=== PATIENT | male | born 1975 | race Two or more races ===

== ENCOUNTER 2021-09-03 03:31 | Emergency (ER) | payer MEDICAID ==
[~2021-09-03] VITALS: Ht 165.1 cm; Wt 90.7 kg
[2021-09-03] MEDS ORDERED: IBUP600T27 PO (11:45)
[2021-09-03] MEDS ORDERED: CYCL-837 PO (11:45)
[2021-09-03 12:36] LABS: Urine Bacteria NONE SEEN /hpf (None Seen); Urine Blood 2+ /uL (Negative); Urine Specific Gravity 1.016 (1.001-1.035); Urine WBC 54 /hpf (0 - 3)
[2021-09-03] MEDS ORDERED: cefTRIAXone 1GM/50ML D5W 50 ML IV ONE (14:30)
[2021-09-03] MEDS ORDERED: cefTRIAXone SOD 500 MG VL IM ONE (15:30)
[2021-09-03] MEDS ORDERED: GABAPENTIN 300 MG CAP PO ONE ×2 (18:00→21:45)
[2021-09-03] MEDS ORDERED: BACLOFEN 10 MG TAB PO ONE ×2 (18:00→21:45)
[2021-09-03] MEDS ORDERED: ALPRAZolam 0.5 MG TAB PO ONE (22:00)
[2021-09-04 15:10] VITALS: BP 151/79
== END 2021-09-04 15:17 | disposition home or self-care (01) ==
LOC: EDBD 03:31 → ER 03:31
DX: M54.9 Dorsalgia, unspecified (principal); M54.2 Cervicalgia; G82.50 Quadriplegia, unspecified; Z79.1 Long term (current) use of non-steroidal anti-inflammatories (NSAID); Z79.899 Other long term (current) drug therapy; V59.59XA Passenger in pick-up truck or van injured in collision with other motor vehicles in traffic accident, initial encounter; Y93.89 Activity, other specified; Y92.89 Other specified places as the place of occurrence of the external cause; Y99.8 Other external cause status
CPT/HCPCS: 72125; 72131; 81001; 96372; 99285; J0696

== ENCOUNTER 2022-08-16 19:38 | Inpatient (IN) | payer MEDICAID ==
[~2022-08-16] VITALS: Ht 175.3 cm; Wt 103.0 kg
[~2022-08-16 19:38] MED LIST: CYCL-837 PO; IBUP600T27 PO
[2022-08-16] MEDS ORDERED: AZITHROMYCIN 500MG/ 250ML 250 ML IV ONE (19:45)
[2022-08-16] MEDS ORDERED: cefTRIAXone 1GM/50ML D5W 50 ML IV ONE (19:45)
[2022-08-16] MEDS ORDERED: SODIUM CHLORIDE 0.9% 1,000 ML IV ONE ×2 (19:45)
[2022-08-16 21:58] LABS: Basophils # (auto) 0 10 ^3/uL (0-0.2); Basophils % (auto) 0.7 % (0.0-2.0); Eosinophils # (auto) 0.2 10 ^3/uL (0-0.8); Eosinophils % (auto) 4.4 % (0.0-7.0); Hematocrit 36.1 % (41.0-53.0); Hemoglobin 11.9 g/dL (13.5-17.5); Lymphocytes # (auto) 0.7 10 ^3/uL (0.4-5.4); Lymphocytes % (auto) 18.1 % (10.0-50.0); Mean Corpuscular Hgb Conc. 32.9 g/dL (32.0-36.0); Mean Corpuscular Volume 97.3 fL (80.0-100.0); Monocytes # (auto) 0.4 10 ^3/uL (0-1.3); Monocytes % (auto) 10.5 % (0.0-12.0); Neutrophils # (auto) 2.7 10 ^3/uL (1.6-8.6); Neutrophils % (auto) 66.3 % (37.0-80.0); Nucleated Red Blood Cells % 0.3 %; Red Blood Cells 3.72 10^6/uL (4.5-5.90); Red Cell Distribution Width 14.5 % (11.8-14.3)
[2022-08-16 22:13] LABS: INR 1.01 (0.9-1.15); Partial Thromboplastin Time 29.3 sec (24.6-33.4)
[2022-08-16 22:27] LABS: Albumin 3.1 g/dL (3.4-5.0); Calcium 7.8 mg/dL (8.5-10.1); Potassium 4.5 mmol/L (3.5-5.1)
[2022-08-16 22:32] LABS: BUN/Creatinine Ratio 18.7 (10.0-20.0); Bilirubin, Total 0.3 mg/dL (0.2-1.0); Total Protein 7.1 g/dL (6.4-8.2)
[2022-08-17 01:02] LABS: Urine Amorphous Crystal FEW /hpf (None Seen); Urine Bacteria MANY /hpf (None Seen); Urine Blood 1+ /uL (Negative); Urine Hyaline Cast MOD /lpf (0 - 2); Urine Mucus FEW (None Seen); Urine Specific Gravity 1.009 (1.001-1.035); Urine WBC 82 /hpf (0 - 3)
[2022-08-17] MEDS: SODIUM CHLORIDE 0.9% 1,000 ML IV SCH ×2 (03:15→20:14)
[2022-08-17] MEDS ORDERED: ONDANSETRON HCL 4 MG/2 ML VIAL IV PRN (03:15)
[2022-08-17] MEDS ORDERED: DOCUSATE SOD 100 MG CAP PO PRN (03:15)
[2022-08-17] MEDS ORDERED: ACETAMINOPHEN 325 MG TAB PO PRN ×2 (03:15→16:45)
[2022-08-17] MEDS ORDERED: ALBUMIN 25% 100 ML IV ONE (03:15)
[2022-08-17] MEDS ORDERED: ALPR2TAB2 PO (04:07)
[2022-08-17] MEDS ORDERED: DANT50CA PO (04:23)
[2022-08-17] MEDS ORDERED: HYDR-4902 PO (04:23)
[2022-08-17] MEDS ORDERED: GABA-339 PO (04:23)
[2022-08-17] MEDS ORDERED: OME20T PO (04:23)
[2022-08-17] MEDS ORDERED: BACL10TA PO (04:23)
[2022-08-17] MEDS: HYDROcodone-ACET 5/325MG TAB PO PRN ×4 (04:29→23:24)
[2022-08-17] MEDS ORDERED: MORPHINE SULFATE INJ 2 MG/ml SYRG IV PRN (04:30)
[2022-08-17] MEDS ORDERED: NITROGLYCERIN 0.4 MG SL TAB SL PRN (04:30)
[2022-08-17 06:16] LABS: Basophils # (auto) 0 10 ^3/uL (0-0.2); Basophils % (auto) 0.8 % (0.0-2.0); Eosinophils # (auto) 0.2 10 ^3/uL (0-0.8); Eosinophils % (auto) 4.9 % (0.0-7.0); Hematocrit 31.3 % (41.0-53.0); Hemoglobin 10.8 g/dL (13.5-17.5); Lymphocytes # (auto) 0.7 10 ^3/uL (0.4-5.4); Lymphocytes % (auto) 19.7 % (10.0-50.0); Mean Corpuscular Hemoglobin 33.3 pg (28.0-32.0); Mean Corpuscular Hgb Conc. 34.4 g/dL (32.0-36.0); Monocytes # (auto) 0.5 10 ^3/uL (0-1.3); Monocytes % (auto) 14.8 % (0.0-12.0); Neutrophils # (auto) 2.2 10 ^3/uL (1.6-8.6); Neutrophils % (auto) 59.8 % (37.0-80.0); Red Blood Cells 3.23 10^6/uL (4.5-5.90); Red Cell Distribution Width 14.5 % (11.8-14.3); White Blood Cell 3.6 10^3/uL (4.4-10.8)
[2022-08-17 06:42] LABS: Potassium 4.7 mmol/L (3.5-5.1)
[2022-08-17 07:13] LABS: Albumin 3.2 g/dL (3.4-5.0); BUN/Creatinine Ratio 22.9 (10.0-20.0); Bilirubin, Total 0.2 mg/dL (0.2-1.0); Calcium 7.8 mg/dL (8.5-10.1); Total Protein 6.5 g/dL (6.4-8.2)
[2022-08-17] MEDS: ENOXAPARIN SOD 40 MG/0.4 ML SYRINGE SC SCH (11:26)
[2022-08-17] MEDS: FAMOTIDINE (10MG/ML) 2ML VL IV SCH (11:26)
[2022-08-17] MEDS ORDERED: IBUPROFEN 600 MG TAB PO PRN (16:45)
[2022-08-17] MEDS: GABAPENTIN 300 MG CAP PO SCH ×2 (17:44→22:04)
[2022-08-17] MEDS: BACLOFEN 10 MG TAB PO SCH ×2 (17:44→22:04)
[2022-08-17] MEDS: DANTROLENE SODIUM 50 MG PO SCH ×2 (18:40→22:12)
[2022-08-17] MEDS: cefTRIAXone 1GM/50ML D5W 50 ML IV SCH (21:05)
[2022-08-17] MEDS: AZITHROMYCIN 500MG/ 250ML 250 ML IV SCH (22:03)
[2022-08-18] VITALS (8 sets, daily range): BP systolic 113–164; BP diastolic 54–101
[2022-08-18] MEDS: ALPRAZolam 0.5 MG TAB PO SCH ×3 (01:18→22:04)
[2022-08-18] MEDS ORDERED: SENN-83 PO (02:33)
[2022-08-18] MEDS ORDERED: BACL10TA PO (02:56)
[2022-08-18] MEDS ORDERED: SULF400T11 PO (03:00)
[2022-08-18] MEDS: GABAPENTIN 300 MG CAP PO SCH ×4 (05:24→22:04)
[2022-08-18] MEDS: BACLOFEN 10 MG TAB PO SCH ×4 (05:24→22:05)
[2022-08-18] MEDS: DANTROLENE SODIUM 50 MG PO SCH (05:25)
[2022-08-18] MEDS: HYDROcodone-ACET 5/325MG TAB PO PRN ×3 (05:25→20:38)
[2022-08-18 07:19] LABS: Basophils # (auto) 0.1 10 ^3/uL (0-0.2); Eosinophils # (auto) 0.2 10 ^3/uL (0-0.8); Eosinophils % (auto) 5.3 % (0.0-7.0); Hematocrit 34.4 % (41.0-53.0); Hemoglobin 11.6 g/dL (13.5-17.5); Lymphocytes # (auto) 0.8 10 ^3/uL (0.4-5.4); Lymphocytes % (auto) 18.4 % (10.0-50.0); Mean Corpuscular Hemoglobin 32.2 pg (28.0-32.0); Mean Corpuscular Hgb Conc. 33.7 g/dL (32.0-36.0); Mean Corpuscular Volume 95.6 fL (80.0-100.0); Monocytes # (auto) 0.6 10 ^3/uL (0-1.3); Monocytes % (auto) 12.4 % (0.0-12.0); Neutrophils # (auto) 2.8 10 ^3/uL (1.6-8.6); Neutrophils % (auto) 61.9 % (37.0-80.0); Nucleated Red Blood Cells % 0.1 %; Red Cell Distribution Width 14.5 % (11.8-14.3); White Blood Cell 4.5 10^3/uL (4.4-10.8)
[2022-08-18 07:44] LABS: Albumin 3.1 g/dL (3.4-5.0); Calcium 8.4 mg/dL (8.5-10.1); Potassium 4.1 mmol/L (3.5-5.1)
[2022-08-18 07:47] LABS: BUN/Creatinine Ratio 15.2 (10.0-20.0); Bilirubin, Total 0.2 mg/dL (0.2-1.0); Total Protein 7.1 g/dL (6.4-8.2)
[2022-08-18] MEDS: ENOXAPARIN SOD 40 MG/0.4 ML SYRINGE SC SCH (09:52)
[2022-08-18] MEDS: FAMOTIDINE (10MG/ML) 2ML VL IV SCH (09:53)
[2022-08-18] MEDS: SODIUM CHLORIDE 0.9% 1,000 ML IV SCH ×2 (12:35→17:56)
[2022-08-18] MEDS: DANTROLENE 50 MG PO SCH ×3 (13:50→22:05)
[2022-08-18] MEDS ORDERED: hydrALAZINE HCL 20 MG/ML VL IV PRN (16:30)
[2022-08-18] MEDS: LOSARTAN POTASSIUM 25 MG TAB PO ONE ×2 (17:30→17:32)
[2022-08-18] MEDS: cefTRIAXone 1GM/50ML D5W 50 ML IV SCH (20:39)
[2022-08-18] MEDS: AZITHROMYCIN 500MG/ 250ML 250 ML IV SCH (22:04)
[2022-08-19] MEDS: HYDROcodone-ACET 5/325MG TAB PO PRN ×4 (01:22→18:11)
[2022-08-19 05:00] VITALS: BP 150/85
[2022-08-19] MEDS: BACLOFEN 10 MG TAB PO SCH ×3 (06:16→18:11)
[2022-08-19] MEDS: DANTROLENE 50 MG PO SCH ×3 (06:16→18:12)
[2022-08-19] MEDS: GABAPENTIN 300 MG CAP PO SCH ×3 (06:16→18:11)
[2022-08-19 06:56] LABS: Basophils # (auto) 0.1 10 ^3/uL (0-0.2); Basophils % (auto) 1.5 % (0.0-2.0); Eosinophils # (auto) 0.2 10 ^3/uL (0-0.8); Eosinophils % (auto) 5.2 % (0.0-7.0); Hematocrit 33.8 % (41.0-53.0); Hemoglobin 11.7 g/dL (13.5-17.5); Lymphocytes # (auto) 1.6 10 ^3/uL (0.4-5.4); Lymphocytes % (auto) 36.9 % (10.0-50.0); Mean Corpuscular Hemoglobin 32.6 pg (28.0-32.0); Mean Corpuscular Hgb Conc. 34.6 g/dL (32.0-36.0); Mean Corpuscular Volume 94.2 fL (80.0-100.0); Monocytes # (auto) 0.6 10 ^3/uL (0-1.3); Monocytes % (auto) 14.4 % (0.0-12.0); Neutrophils # (auto) 1.8 10 ^3/uL (1.6-8.6); Nucleated Red Blood Cells % 0.6 %; Red Blood Cells 3.59 10^6/uL (4.5-5.90); Red Cell Distribution Width 14.5 % (11.8-14.3); White Blood Cell 4.2 10^3/uL (4.4-10.8)
[2022-08-19 07:26] LABS: Potassium 4.2 mmol/L (3.5-5.1)
[2022-08-19 07:33] LABS: Albumin 3.3 g/dL (3.4-5.0); BUN/Creatinine Ratio 19.6 (10.0-20.0); Bilirubin, Total 0.3 mg/dL (0.2-1.0); Total Protein 7.2 g/dL (6.4-8.2)
[2022-08-19 09:27] VITALS: BP 166/90
[2022-08-19] MEDS: ENOXAPARIN SOD 40 MG/0.4 ML SYRINGE SC SCH (09:40)
[2022-08-19] MEDS: FAMOTIDINE (10MG/ML) 2ML VL IV SCH (09:41)
[2022-08-19] MEDS: ALPRAZolam 0.5 MG TAB PO SCH (09:41)
[2022-08-19] MEDS ORDERED: LOSARTAN POTASSIUM 25 MG TAB PO SCH (10:00)
[2022-08-19] MEDS ORDERED: LINE1TAB6 PO (11:47)
[2022-08-19 12:47] LABS: Urine Bacteria NONE SEEN /hpf (None Seen); Urine Blood 3+ /uL (Negative); Urine Hyaline Cast FEW /lpf (0 - 2); Urine Specific Gravity 1.013 (1.001-1.035); Urine WBC 129 /hpf (0 - 3); Urine WBC Clumps PRESENT /hpf (None Seen)
[2022-08-19 13:00] VITALS: BP 150/93
[2022-08-19 17:22] VITALS: BP 122/75
[2022-08-19 18:20] VITALS: BP 122/75
== END 2022-08-19 20:00 | disposition home health service (06) | DRG 720 ==
LOC: ER 19:38 → EDBD 19:38 → TELE 08-17 04:26 → TELE-WESTW 08-18 01:00
PROVIDERS: ADMIT Nurse Practitioner Family; ATTEND Nurse Practitioner
DX: A41.9 Sepsis, unspecified organism (principal); I21.3 ST elevation (STEMI) myocardial infarction of unspecified site; G82.50 Quadriplegia, unspecified; J18.9 Pneumonia, unspecified organism; J81.1 Chronic pulmonary edema; E87.1 Hypo-osmolality and hyponatremia; N39.0 Urinary tract infection, site not specified; R00.1 Bradycardia, unspecified; R73.9 Hyperglycemia, unspecified
CPT/HCPCS: 36415; 71045; 74176; 80053; 81001; 82962; 83036; 83605; 83880; 84484; 85025; 85379; 85610; 85730; 87040; 87070; 87086; 87205; 93005; 93306; 96361; 96365; 96367; 96368; 96375; G0378; J0696; J3490; P9047

== ENCOUNTER 2022-11-17 14:06 | Inpatient (IN) | payer MEDICAID ==
[~2022-11-17] VITALS: Ht 175.3 cm; Wt 101.4 kg
[~2022-11-17 14:06] MED LIST changes: +ALPR2TAB2 PO; +BACL10TA PO; -CYCL-837 PO; +DANT50CA PO; +GABA-339 PO; +HYDR-4902 PO; +IBUP-1454 PO; -IBUP600T27 PO; +LINE1TAB6 PO; +OME20T PO; +SENN-105 PO
[2022-11-17 15:12] LABS: Basophils # (auto) 0.1 10 ^3/uL (0-0.2); Basophils % (auto) 1.1 % (0.0-2.0); Eosinophils # (auto) 0.2 10 ^3/uL (0-0.8); Eosinophils % (auto) 4.2 % (0.0-7.0); Hematocrit 36.7 % (41.0-53.0); Lymphocytes # (auto) 1.4 10 ^3/uL (0.4-5.4); Lymphocytes % (auto) 28.8 % (10.0-50.0); Mean Corpuscular Hemoglobin 30.5 pg (28.0-32.0); Mean Corpuscular Hgb Conc. 32.7 g/dL (32.0-36.0); Mean Corpuscular Volume 93.3 fL (80.0-100.0); Monocytes # (auto) 0.8 10 ^3/uL (0-1.3); Monocytes % (auto) 16.6 % (0.0-12.0); Neutrophils # (auto) 2.3 10 ^3/uL (1.6-8.6); Neutrophils % (auto) 49.3 % (37.0-80.0); Nucleated Red Blood Cells % 0.2 %; Red Blood Cells 3.94 10^6/uL (4.5-5.90); Red Cell Distribution Width 13.9 % (11.8-14.3); White Blood Cell 4.7 10^3/uL (4.4-10.8)
[2022-11-17 15:28] LABS: Albumin 3.1 g/dL (3.4-5.0); BUN/Creatinine Ratio 12.5 (10.0-20.0); Calcium 8.9 mg/dL (8.5-10.1); Potassium 4.1 mmol/L (3.5-5.1)
[2022-11-17 15:30] LABS: Bilirubin, Total 0.4 mg/dL (0.2-1.0)
[2022-11-17] MEDS ORDERED: SODIUM CHLORIDE 0.9% 2,700 ML IV ONE ×2 (16:45→17:15)
[2022-11-17] MEDS ORDERED: ACETAMINOPHEN 325 MG TAB PO PRN ×2 (16:45→18:30)
[2022-11-17] MEDS ORDERED: IOHEXOL 300 MG/ML 100ML BOTTLE IJ ONE (16:58)
[2022-11-17] MEDS ORDERED: ONDANSETRON HCL 4 MG/2 ML VIAL IV ONE (17:00)
[2022-11-17] MEDS ORDERED: KETOROLAC TROMETH 30 MG/ML 1ML VIAL IV ONE (17:00)
[2022-11-17 17:20] VITALS: PULSE 84; RESP 16; O2SAT 95
[2022-11-17 17:37] LABS: Partial Thromboplastin Time 28.3 SEC (24.5-34.5)
[2022-11-17 17:44] LABS: Magnesium 2.1 mg/dL (1.6-2.6)
[2022-11-17] MEDS ORDERED: VANCOMYCIN PER PHARMACY 0 MG IV SCH (17:45)
[2022-11-17] MEDS: VANCOMYCIN 1GM/250ML 250 ML IV SCH (18:19)
[2022-11-17] MEDS: PIPERACILLIN-TAZOB 3.375GM 100 ML IV SCH ×2 (18:19→19:00)
[2022-11-17] MEDS ORDERED: DOCUSATE SOD 100 MG CAP PO PRN (18:30)
[2022-11-17] MEDS ORDERED: ONDANSETRON HCL 4 MG/2 ML VIAL IV PRN (18:30)
[2022-11-17] MEDS ORDERED: HYDROcodone-ACET 5/325MG TAB PO PRN (18:45)
[2022-11-17 19:35] VITALS: PULSE 62; RESP 15; O2SAT 96
[2022-11-17] MEDS: GABAPENTIN 300 MG CAP PO SCH ×2 (21:58→22:00)
[2022-11-17] MEDS: BACLOFEN 10 MG TAB PO SCH ×2 (21:58→22:00)
[2022-11-17] MEDS ORDERED: VANCOMYCIN 1GM/250ML 250 ML IV SCH (22:00)
[2022-11-17] MEDS: DANTROLENE 50 MG PO SCH (22:00)
[2022-11-17] MEDS: SODIUM CHLOR 0.9% PF (SALINE LOCK) 10ML VIAL/SYR IV SCH (22:03)
[2022-11-17] MEDS: HYDROcodone-ACET 5/325MG TAB PO PRN (22:25)
[2022-11-18] MEDS: PIPERACILLIN-TAZOB 3.375GM 100 ML IV SCH ×5 (00:03→23:47)
[2022-11-18 00:41] LABS: Urine Bacteria MOD /hpf (None Seen); Urine Blood 2+ /uL (Negative); Urine Mucus FEW (None Seen); Urine Specific Gravity 1.023 (1.001-1.035); Urine WBC 90 /hpf (0 - 3)
[2022-11-18 00:56] LABS: Alcohol, Urine < 3.0 mg/dL (0-10); Barbiturate Scree,Urine NEGATIVE (NEGATIVE); Benzodiazephine Screen, Urine POSITIVE (NEGATIVE); Cannabinoid Screen, Urine NEGATIVE (NEGATIVE); Cocaine Screen, Urine NEGATIVE (NEGATIVE); Opiate Scree,Urine NEGATIVE (NEGATIVE)
[2022-11-18 01:03] LABS: Amphetamine Screen, Urine NEGATIVE (NEGATIVE); Phencyclidine Screen, Urine NEGATIVE (NEGATIVE)
[2022-11-18] MEDS: VANCOMYCIN 1GM/250ML 250 ML IV SCH ×3 (02:40→17:32)
[2022-11-18] MEDS: ALPRAZolam 0.5 MG TAB PO PRN ×3 (02:46→23:35)
[2022-11-18] MEDS: HYDROcodone-ACET 5/325MG TAB PO PRN ×3 (05:43→21:23)
[2022-11-18] MEDS: SODIUM CHLOR 0.9% PF (SALINE LOCK) 10ML VIAL/SYR IV SCH ×3 (05:52→22:00)
[2022-11-18] MEDS: DANTROLENE 50 MG PO SCH ×3 (06:00→17:18)
[2022-11-18] MEDS: GABAPENTIN 300 MG CAP PO SCH ×4 (06:03→23:35)
[2022-11-18 07:56] VITALS: PULSE 61; RESP 20; O2SAT 94
[2022-11-18 09:00] VITALS: PULSE 65; RESP 14; O2SAT 96
[2022-11-18] MEDS ORDERED: OMEPRAZOLE 40MG/20ML ORAL SUSP PO SCH (10:00)
[2022-11-18] MEDS: ENOXAPARIN SOD 40 MG/0.4 ML SYRINGE SC SCH (10:31)
[2022-11-18] MEDS: PANTOPRAZOLE 40 MG TAB PO SCH (10:32)
[2022-11-18] MEDS: SENNA 8.6 MG TAB PO SCH (10:32)
[2022-11-18] MEDS: BACLOFEN 10 MG TAB PO SCH ×3 (13:04→23:35)
[2022-11-18] MEDS: IBUPROFEN 600 MG TAB PO SCH ×2 (17:18→22:00)
[2022-11-18] MEDS: DANTROLENE 25 MG PO SCH ×2 (18:00→23:37)
[2022-11-18 21:56] VITALS: PULSE 54; RESP 18; O2SAT 99
[2022-11-19] VITALS (8 sets, daily range): BP systolic 100–127; BP diastolic 55–86; PULSE 53–89; RESP 14–18; TEMP 97–98.8; O2SAT 97–99
[2022-11-19] MEDS: VANCOMYCIN 1GM/250ML 250 ML IV SCH ×3 (01:54→17:35)
[2022-11-19] MEDS: HYDROcodone-ACET 5/325MG TAB PO PRN ×3 (05:16→23:04)
[2022-11-19] MEDS: IBUPROFEN 600 MG TAB PO SCH ×3 (06:00→22:00)
[2022-11-19] MEDS: PIPERACILLIN-TAZOB 3.375GM 100 ML IV SCH ×4 (06:03→23:08)
[2022-11-19] MEDS: GABAPENTIN 300 MG CAP PO SCH ×4 (06:04→23:00)
[2022-11-19] MEDS: BACLOFEN 10 MG TAB PO SCH ×4 (06:04→23:00)
[2022-11-19] MEDS: DANTROLENE 25 MG PO SCH ×4 (06:06→23:01)
[2022-11-19] MEDS: SODIUM CHLOR 0.9% PF (SALINE LOCK) 10ML VIAL/SYR IV SCH ×3 (06:15→22:00)
[2022-11-19] MEDS: PANTOPRAZOLE 40 MG TAB PO SCH (09:47)
[2022-11-19] MEDS: SENNA 8.6 MG TAB PO SCH (09:47)
[2022-11-19] MEDS: ENOXAPARIN SOD 40 MG/0.4 ML SYRINGE SC SCH (09:47)
[2022-11-19] MEDS: ALPRAZolam 0.5 MG TAB PO PRN (17:50)
[2022-11-20] VITALS (7 sets, daily range): BP systolic 118–160; BP diastolic 71–89; PULSE 59–83; RESP 14–19; TEMP 97.5–98.3; O2SAT 94–97
[2022-11-20] MEDS: VANCOMYCIN 1GM/250ML 250 ML IV SCH ×2 (02:37→08:44)
[2022-11-20] MEDS: SODIUM CHLOR 0.9% PF (SALINE LOCK) 10ML VIAL/SYR IV SCH ×3 (05:57→21:46)
[2022-11-20] MEDS: IBUPROFEN 600 MG TAB PO SCH ×3 (06:00→22:00)
[2022-11-20] MEDS: PIPERACILLIN-TAZOB 3.375GM 100 ML IV SCH ×3 (06:11→17:59)
[2022-11-20] MEDS: GABAPENTIN 300 MG CAP PO SCH ×4 (06:12→21:45)
[2022-11-20] MEDS: BACLOFEN 10 MG TAB PO SCH ×4 (06:12→21:45)
[2022-11-20] MEDS: DANTROLENE 25 MG PO SCH ×4 (06:13→21:46)
[2022-11-20] MEDS: PANTOPRAZOLE 40 MG TAB PO SCH (08:43)
[2022-11-20] MEDS: SENNA 8.6 MG TAB PO SCH (08:43)
[2022-11-20] MEDS: ENOXAPARIN SOD 40 MG/0.4 ML SYRINGE SC SCH (08:44)
[2022-11-20 09:58] LABS: BUN/Creatinine Ratio 8.8 (10.0-20.0); Calcium 8.8 mg/dL (8.5-10.1)
[2022-11-20 10:33] LABS: Hematocrit 34.2 % (41.0-53.0); Hemoglobin 11.5 g/dL (13.5-17.5); Mean Corpuscular Hemoglobin 31.3 pg (28.0-32.0); Mean Corpuscular Hgb Conc. 33.5 g/dL (32.0-36.0); Mean Corpuscular Volume 93.4 fL (80.0-100.0); Red Blood Cells 3.66 10^6/uL (4.5-5.90); White Blood Cell 6.8 10^3/uL (4.4-10.8)
[2022-11-20 10:40] LABS: Band Neutrophils % (manual) 0; Basophils % (manual) 0 (0.0-2.0); Blast Cells 0; Metamyelocytes % 0; Myelocytes % 0; Promyelocytes % 0; Reactive Lymphocytes 0
[2022-11-20 14:00] LABS: Eosinophils % (manual) 1 (0-7); Lymphocytes % (manual) 32 (10.0-50.0); Monocytes % (manual) 8 (0-12)
[2022-11-20] MEDS: HYDROcodone-ACET 5/325MG TAB PO PRN (18:07)
[2022-11-20] MEDS: ALPRAZolam 0.5 MG TAB PO PRN (21:54)
[2022-11-21] VITALS (7 sets, daily range): BP systolic 110–148; BP diastolic 69–93; PULSE 56–83; RESP 14–20; TEMP 97.5–98.5; O2SAT 95–98
[2022-11-21] MEDS: PIPERACILLIN-TAZOB 3.375GM 100 ML IV SCH ×5 (00:11→23:30)
[2022-11-21] MEDS: HYDROcodone-ACET 5/325MG TAB PO PRN ×5 (00:45→21:54)
[2022-11-21] MEDS: IBUPROFEN 600 MG TAB PO SCH ×3 (06:00→21:20)
[2022-11-21] MEDS: BACLOFEN 10 MG TAB PO SCH ×4 (06:11→21:18)
[2022-11-21] MEDS: GABAPENTIN 300 MG CAP PO SCH ×4 (06:12→21:19)
[2022-11-21] MEDS: SODIUM CHLOR 0.9% PF (SALINE LOCK) 10ML VIAL/SYR IV SCH ×3 (06:12→21:19)
[2022-11-21] MEDS: DANTROLENE 25 MG PO SCH ×4 (06:13→21:19)
[2022-11-21] MEDS: SENNA 8.6 MG TAB PO SCH (09:21)
[2022-11-21] MEDS: PANTOPRAZOLE 40 MG TAB PO SCH (09:21)
[2022-11-21] MEDS: ENOXAPARIN SOD 40 MG/0.4 ML SYRINGE SC SCH (09:22)
[2022-11-21] MEDS: ALPRAZolam 0.5 MG TAB PO PRN (11:18)
[2022-11-21] MEDS ORDERED: CIP500T GT ×2 (22:21→22:45)
[2022-11-22] MEDS: ALPRAZolam 0.5 MG TAB PO PRN ×2 (00:26→15:37)
[2022-11-22] MEDS: HYDROcodone-ACET 5/325MG TAB PO PRN (04:24)
[2022-11-22 05:00] VITALS: BP 154/89; PULSE 63; RESP 17; TEMP 97.3; O2SAT 100
[2022-11-22] MEDS: SODIUM CHLOR 0.9% PF (SALINE LOCK) 10ML VIAL/SYR IV SCH ×2 (06:00→15:37)
[2022-11-22] MEDS: DANTROLENE 25 MG PO SCH ×2 (06:45→13:18)
[2022-11-22] MEDS: PIPERACILLIN-TAZOB 3.375GM 100 ML IV SCH ×2 (06:54→12:00)
[2022-11-22] MEDS: BACLOFEN 10 MG TAB PO SCH ×2 (06:55→13:06)
[2022-11-22] MEDS: GABAPENTIN 300 MG CAP PO SCH ×2 (06:55→13:06)
[2022-11-22 08:00] VITALS: BP 142/88; PULSE 62; PULSE 66; RESP 17; TEMP 98.4; O2SAT 98
[2022-11-22 09:00] VITALS: BP 139/72; PULSE 54; RESP 16; TEMP 97.5; O2SAT 98
[2022-11-22] MEDS: ENOXAPARIN SOD 40 MG/0.4 ML SYRINGE SC SCH (09:52)
[2022-11-22] MEDS: SENNA 8.6 MG TAB PO SCH (09:52)
[2022-11-22 13:00] VITALS: BP 134/89; PULSE 60; RESP 15; TEMP 97.4; O2SAT 97
[2022-11-22 15:17] VITALS: TEMP 36.3
[2022-11-22 16:47] VITALS: BP 105/62; PULSE 66; RESP 15; TEMP 97.5; O2SAT 97
== END 2022-11-22 18:30 | disposition home health service (06) | DRG 463 ==
LOC: ER 14:06 → EDBD 14:06 → TELE 18:28 → TELE-CENTR 11-18 21:41
PROVIDERS: ADMIT Nurse Practitioner; ATTEND Nurse Practitioner
PROC: 05HF33Z Insertion of Infusion Device into Left Cephalic Vein, Percutaneous Approach (ICD-10-PCS; principal; 2022-11-17)
PROC: B54NZZA Ultrasonography of Left Upper Extremity Veins, Guidance (ICD-10-PCS; 2022-11-17)
DX: N39.0 Urinary tract infection, site not specified (principal); G82.50 Quadriplegia, unspecified; L89.314 Pressure ulcer of right buttock, stage 4; E44.1 Mild protein-calorie malnutrition; E87.1 Hypo-osmolality and hyponatremia; D63.8 Anemia in other chronic diseases classified elsewhere; L89.009 Pressure ulcer of unspecified elbow, unspecified stage; N31.9 Neuromuscular dysfunction of bladder, unspecified; Z82.3 Family history of stroke; Z68.33 Body mass index [BMI] 33.0-33.9, adult
CPT/HCPCS: 36415; 72193; 80048; 80053; 80202; 80307; 80320; 81001; 82553; 82565; 83605; 83690; 83735; 85007; 85025; 85027; 85610; 85652; 85730; 86141; 87040; 87077; 87086; 87088; 87186; 87205; 96361; 96365; 96375; G0378; J1885; J2405; J2543

== ENCOUNTER 2023-05-18 20:00 | Inpatient (IN) | payer MEDICAID ==
[~2023-05-18] VITALS: Ht 175.3 cm; Wt 96.4 kg
[~2023-05-18 20:00] MED LIST changes: +CIP500T GT; -LINE1TAB6 PO
[2023-05-18 20:50] LABS: Urine Epithelial Cast None Seen /hpf (<5)
[2023-05-18 21:00] VITALS: PULSE 56; RESP 14; O2SAT 98
[2023-05-18] MEDS ORDERED: ONDANSETRON HCL 4 MG/2 ML VIAL IV ONE (21:00)
[2023-05-18] MEDS ORDERED: MORPHINE SULFATE 4 MG/ML SYR/VIAL IV ONE (21:00)
[2023-05-18 21:04] LABS: Urine Bacteria MANY /hpf (None Seen); Urine Blood Negative /uL (Negative); Urine Clarity HAZY (Clear); Urine Color Yellow (Yellow); Urine Protein, UAD Negative (Negative); Urine Specific Gravity 1.008 (1.001-1.035); Urine Urobilinogen Normal (Negative); Urine WBC 8 /hpf (0 - 3); Urine pH 6.5 (5.0-8.0)
[2023-05-18 21:35] LABS: Basophils # (auto) 0 10 ^3/uL (0-0.2); Basophils % (auto) 0.7 % (0.0-2.0); Eosinophils # (auto) 0.4 10 ^3/uL (0-0.8); Eosinophils % (auto) 6.3 % (0.0-7.0); Hematocrit 35.5 % (41.0-53.0); Hemoglobin 11.7 g/dL (13.5-17.5); Lymphocytes # (auto) 1.6 10 ^3/uL (0.4-5.4); Lymphocytes % (auto) 24.8 % (10.0-50.0); Mean Corpuscular Hemoglobin 28.8 pg (28.0-32.0); Mean Corpuscular Volume 87.1 fL (80.0-100.0); Monocytes # (auto) 0.7 10 ^3/uL (0-1.3); Monocytes % (auto) 11.2 % (0.0-12.0); Neutrophils # (auto) 3.7 10 ^3/uL (1.6-8.6); Red Blood Cells 4.08 10^6/uL (4.5-5.90); Red Cell Distribution Width 15.2 % (11.8-14.3); White Blood Cell 6.5 10^3/uL (4.4-10.8)
[2023-05-18 21:51] LABS: Alanine Aminotransferase 14 U/L (7-40); Albumin 3.8 g/dL (3.2-4.8); Alkaline Phosphatase 109 U/L (46-116); Anion Gap 7 (5-15); Aspartate Aminotransferase 17 U/L (13-40); BUN/Creatinine Ratio 22.4 (10.0-20.0); Blood Urea Nitrogen 11 mg/dL (9-23); Calcium 8.7 mg/dL (8.7-10.4); Carbon Dioxide 24 mmol/L (20-30); Chloride 100 mmol/L (98-107); Glucose 130 mg/dL (74-106); INR 1.03 (0.9-1.15); Partial Thromboplastin Time 28.3 SEC (24.5-34.5); Potassium 4.1 mmol/L (3.5-5.1); Prothrombin Time 10.8 sec (9.3-11.8); Sodium 131 mmol/L (136-145)
[2023-05-18 21:52] LABS: Bilirubin, Total 0.4 mg/dL (0.2-1.0); Total Protein 6.7 g/dL (5.7-8.2)
[2023-05-18] MEDS ORDERED: cefTRIAXone 1GM/50ML D5W 50 ML IV ONE (23:15)
[2023-05-19] MEDS ORDERED: MAALOX PLUS or MAALOX 30 ML PO PRN (01:15)
[2023-05-19] MEDS ORDERED: HYDROmorphone HCL 2 MG/ML VL/or syr IV PRN (01:15)
[2023-05-19] MEDS ORDERED: ACETAMINOPHEN 325 MG TAB PO PRN (01:15)
[2023-05-19] MEDS ORDERED: LORazepam 0.5 MG TAB PO PRN (01:15)
[2023-05-19] MEDS ORDERED: DOCUSATE SOD 100 MG CAP PO PRN (01:15)
[2023-05-19] MEDS: SODIUM CHLORIDE 0.9% 1,000 ML IV SCH ×2 (01:51→15:11)
[2023-05-19] MEDS: TEMAZEPAM 15 MG CAP PO PRN (04:08)
[2023-05-19] MEDS: HYDROcodone-ACET 5/325MG TAB PO PRN ×2 (04:50→21:42)
[2023-05-19 04:57] LABS: Basophils # (auto) 0 10 ^3/uL (0-0.2); Basophils % (auto) 0.8 % (0.0-2.0); Eosinophils # (auto) 0.3 10 ^3/uL (0-0.8); Eosinophils % (auto) 5.6 % (0.0-7.0); Hematocrit 37.5 % (41.0-53.0); Hemoglobin 12.3 g/dL (13.5-17.5); Lymphocytes # (auto) 1.8 10 ^3/uL (0.4-5.4); Lymphocytes % (auto) 32.4 % (10.0-50.0); Mean Corpuscular Hemoglobin 28.9 pg (28.0-32.0); Mean Corpuscular Hgb Conc. 32.9 g/dL (32.0-36.0); Mean Corpuscular Volume 87.9 fL (80.0-100.0); Monocytes # (auto) 0.5 10 ^3/uL (0-1.3); Monocytes % (auto) 9.5 % (0.0-12.0); Neutrophils # (auto) 2.9 10 ^3/uL (1.6-8.6); Neutrophils % (auto) 51.7 % (37.0-80.0); Nucleated Red Blood Cells % 0.1 %; Red Blood Cells 4.27 10^6/uL (4.5-5.90); Red Cell Distribution Width 15.1 % (11.8-14.3); White Blood Cell 5.7 10^3/uL (4.4-10.8)
[2023-05-19 05:06] LABS: Chloride 103 mmol/L (98-107); Potassium 3.6 mmol/L (3.5-5.1); Sodium 134 mmol/L (136-145)
[2023-05-19 05:07] LABS: Anion Gap 8 (5-15); Carbon Dioxide 23 mmol/L (20-30)
[2023-05-19 05:12] LABS: BUN/Creatinine Ratio 14.3 (10.0-20.0); Blood Urea Nitrogen 7 mg/dL (9-23); Glucose 102 mg/dL (74-106)
[2023-05-19 07:41] VITALS: PULSE 77; RESP 16; O2SAT 100
[2023-05-19] MEDS: MORPHINE SULFATE INJ 2 MG/ml SYRG IV PRN ×2 (09:12→13:25)
[2023-05-19] MEDS: ONDANSETRON HCL 4 MG/2 ML VIAL IV PRN ×2 (09:12→13:25)
[2023-05-19] MEDS ORDERED: BACLOFEN 10 MG TAB PO SCH ×2 (14:00→18:00)
[2023-05-19 15:25] VITALS: PULSE 90; RESP 20; O2SAT 97
[2023-05-19] MEDS: ALPRAZolam 0.5 MG TAB PO SCH ×2 (15:34→21:41)
[2023-05-19] MEDS ORDERED: PATIENTS OWN MEDICATION (Gabapentin 600 MG) PO SCH (18:00)
[2023-05-19] MEDS: DANTROLENE SODIUM 50 MG PO SCH ×2 (18:00→21:46)
[2023-05-19] MEDS: GABAPENTIN 300 MG CAP PO SCH ×2 (18:02→21:42)
[2023-05-19] MEDS: SENNA 8.6 MG TAB PO SCH (21:42)
[2023-05-19] MEDS: BACLOFEN 10 MG TAB PO SCH (21:42)
[2023-05-19] MEDS ORDERED: ALPRAZOLAM 2 MG PO SCH (22:00)
[2023-05-20] VITALS (7 sets, daily range): BP systolic 93–144; BP diastolic 63–92; PULSE 74–91; RESP 14–18; TEMP 97.4–98.5; O2SAT 74–100
[2023-05-20] MEDS: TEMAZEPAM 15 MG CAP PO PRN ×2 (01:13→20:56)
[2023-05-20] MEDS: cefTRIAXone 1GM/50ML D5W 50 ML IV SCH ×2 (01:14→23:45)
[2023-05-20] MEDS ORDERED: LEVO500T91 PO (01:20)
[2023-05-20] MEDS ORDERED: BACL20TA PO (01:21)
[2023-05-20] MEDS ORDERED: CHOL50007 PO (01:23)
[2023-05-20] MEDS ORDERED: AMIT-256 PO (01:24)
[2023-05-20] MEDS ORDERED: DOCU-94 PO (01:25)
[2023-05-20] MEDS: GABAPENTIN 300 MG CAP PO SCH ×4 (05:08→20:56)
[2023-05-20] MEDS: ALPRAZolam 0.5 MG TAB PO SCH ×3 (05:08→21:05)
[2023-05-20] MEDS: BACLOFEN 10 MG TAB PO SCH ×3 (05:08→20:56)
[2023-05-20] MEDS: DANTROLENE SODIUM 50 MG PO SCH ×4 (05:09→21:05)
[2023-05-20] MEDS ORDERED: SENNA 8.6 MG TAB PO SCH (10:00)
[2023-05-20] MEDS: SODIUM CHLORIDE 0.9% 1,000 ML IV SCH (10:35)
[2023-05-20] MEDS: HYDROcodone-ACET 5/325MG TAB PO PRN ×2 (13:42→20:56)
[2023-05-20] MEDS: SENNA 8.6 MG TAB PO SCH (20:56)
[2023-05-20] MEDS ORDERED: ALPRAZolam 0.5 MG TAB PO SCH (22:00)
[2023-05-20] MEDS: ALPRAZolam 0.5 MG TAB PO PRN (23:46)
[2023-05-21] MEDS ORDERED: PANTOPRAZOLE 40 MG TAB PO ONE
[2023-05-21] MEDS: SODIUM CHLORIDE 0.9% 1,000 ML IV SCH ×2 (03:15→17:32)
[2023-05-21 05:00] VITALS: BP 118/66; PULSE 84; RESP 16; TEMP 97.6; O2SAT 84
[2023-05-21] MEDS: GABAPENTIN 300 MG CAP PO SCH ×4 (05:33→21:58)
[2023-05-21] MEDS: BACLOFEN 10 MG TAB PO SCH ×3 (05:33→21:58)
[2023-05-21] MEDS: DANTROLENE SODIUM 50 MG PO SCH ×4 (05:33→21:59)
[2023-05-21] MEDS ORDERED: ALPRAZolam 0.5 MG TAB PO SCH (06:00)
[2023-05-21 09:00] VITALS: BP 109/79; PULSE 94; RESP 18; TEMP 97.6; O2SAT 100
[2023-05-21] MEDS: DOCUSATE SOD 100 MG CAP PO SCH (09:51)
[2023-05-21] MEDS: PANTOPRAZOLE 40 MG TAB PO SCH (09:51)
[2023-05-21 13:00] VITALS: BP 139/54; PULSE 89; RESP 18; TEMP 98; O2SAT 98
[2023-05-21 16:41] VITALS: BP 102/69; PULSE 103; RESP 17; TEMP 98.5; O2SAT 97
[2023-05-21] MEDS ORDERED: CIPR-173 PO (16:59)
[2023-05-21] MEDS: HYDROcodone-ACET 5/325MG TAB PO PRN ×2 (17:24→23:40)
[2023-05-21] MEDS: ALPRAZolam 0.5 MG TAB PO PRN ×2 (17:25→23:41)
[2023-05-21] MEDS: TEMAZEPAM 15 MG CAP PO PRN (20:20)
[2023-05-21] MEDS: SENNA 8.6 MG TAB PO SCH (21:58)
[2023-05-21 22:00] VITALS: BP 99/57; PULSE 85; RESP 24; TEMP 98.2; O2SAT 98
[2023-05-21] MEDS: cefTRIAXone 1GM/50ML D5W 50 ML IV SCH (23:40)
[2023-05-22] MEDS: HYDROcodone-ACET 5/325MG TAB PO PRN ×4 (04:25→16:46)
[2023-05-22 05:00] VITALS: BP 102/60; PULSE 73; RESP 18; TEMP 97.9; O2SAT 96
[2023-05-22] MEDS: BACLOFEN 10 MG TAB PO SCH ×2 (05:37→13:06)
[2023-05-22] MEDS: DANTROLENE SODIUM 50 MG PO SCH ×2 (05:37→13:07)
[2023-05-22] MEDS: GABAPENTIN 300 MG CAP PO SCH ×2 (05:37→13:06)
[2023-05-22 09:00] VITALS: BP 161/95; PULSE 60; RESP 18; TEMP 97.3; O2SAT 98
[2023-05-22] MEDS: ALPRAZolam 0.5 MG TAB PO PRN (09:55)
[2023-05-22] MEDS: PANTOPRAZOLE 40 MG TAB PO SCH (09:55)
[2023-05-22] MEDS: DOCUSATE SOD 100 MG CAP PO SCH (09:55)
[2023-05-22 12:39] VITALS: BP 121/76; PULSE 64; RESP 18; TEMP 98; O2SAT 98
[2023-05-22] MEDS: SODIUM CHLORIDE 0.9% 1,000 ML IV SCH (14:02)
[2023-05-22 17:00] VITALS: BP 126/78; PULSE 63; RESP 17; TEMP 97.9; O2SAT 97
== END 2023-05-22 17:20 | disposition home health service (06) | DRG 466 ==
LOC: EDBD 20:00 → ER 20:00 → OVERFLOW 05-19 01:12 → EAST 05-19 23:49
PROVIDERS: ADMIT Hospitalist; ATTEND Nurse Practitioner
DX: T83.518A Infection and inflammatory reaction due to other urinary catheter, initial encounter (principal); G82.50 Quadriplegia, unspecified; L89.153 Pressure ulcer of sacral region, stage 3; D63.8 Anemia in other chronic diseases classified elsewhere; E87.1 Hypo-osmolality and hyponatremia; M54.9 Dorsalgia, unspecified; N39.0 Urinary tract infection, site not specified
CPT/HCPCS: 36415; 72128; 80048; 80053; 81001; 85025; 85610; 85730; 87040; G0378; J2405